=== PATIENT | female | born 1985 | race Caucasian/White ===

== ENCOUNTER 2017-01-31 12:38 | Emergency (ER) | payer SELFPAY ==
[~2017-01-31] VITALS: Ht 162.6 cm; Wt 56.0 kg
[~2017-01-31 12:38] MED LIST: AVIANE1 EACH PO; FIBER THERAPY0.52 GM PO; FLEXERIL10 MG PO; LO-OVRAL-281 EACH PO; NAPROSYN500 MG PO; NORCO 5/3251 TABLET PO; PERCOCET 5/31 TABLET PO; TYLENOL EXTRA500 MG PO; TYLENOL REGULA325 MG PO; VALACYCLOVIR1000 MG PO; ZOFRAN ODT8 MG PO
[2017-01-31 15:36] LABS: ADD MIUA? NO; BILIRUBIN NEGATIVE; BLOOD NEGATIVE; COLOR STRAW ((YELLOW)); GLUCOSE (STRIP) NEGATIVE; KETONES NEGATIVE; LEUKOCYTES NEGATIVE; NITRITE NEGATIVE; PROTEIN (STRIP) NEGATIVE; SPECIFIC GRAVITY 1.005 (1.000-1.030); UCUL ADDED? NO; UROBILINOGEN 0.2 MG/DL (0.2-1.0)
[2017-01-31 15:43] LABS: HEMATOCRIT 43.1 % (36.0-46.0); MCH 30.7 PG (29.0-34.0); MCHC 32.7 G/DL (30.0-36.0); MCV 93.7 FL (83-99); MEAN PLAT.VOLUME 10.7 uM^3 (9.5-12.4); PLATELET COUNT 263 K/uL (156-360); RBC DIS.WIDTH-CV 12.4 % (11.8-14.6); RBC DIS.WIDTH-SD 42.6 % (39-53); WHITE BLOOD COUNT 9.9 K/uL (4.1-10.2)
[2017-01-31 15:50] LABS: CHLORIDE 105 mEq/L (99-109); POTASSIUM 4.2 mEq/L (3.7-5.4); SODIUM 139 mEq/L (136-147)
[2017-01-31 15:53] LABS: GLUCOSE 82 mg/dL (70-99)
[2017-01-31 15:54] LABS: ANION GAP 12 MEQ/L (2-14)
[2017-01-31 15:55] LABS: TOTAL BILIRUBIN 0.3 mg/dL (0.0-1.0)
[2017-01-31 15:56] LABS: ALKALINE PHOSPHATASE 56 IU/L (3-129); GFR ESTIMATE (CALCULATED) > 59 mL/min/
[2017-01-31 15:57] LABS: UREA NITROGEN (BUN) 19 mg/dL (9-23)
[2017-01-31] MEDS ORDERED: ULTRAM50 MG PO (17:39)
[2017-01-31 17:49] VITALS: BP 110/65
== END 2017-01-31 17:50 | disposition home or self-care (01) ==
LOC: EME 12:38
PROVIDERS: Physician Assistant
DX: R10.9 Unspecified abdominal pain (principal); J45.909 Unspecified asthma, uncomplicated; Z88.6 Allergy status to analgesic agent; Z87.891 Personal history of nicotine dependence; Z90.710 Acquired absence of both cervix and uterus
CPT/HCPCS: 74176; 80053; 81003; 85027; 99281; 99284

== ENCOUNTER 2017-10-06 15:43 | Emergency (ER) | payer SELFPAY ==
[~2017-10-06] VITALS: Ht 162.6 cm; Wt 56.2 kg
[~2017-10-06 15:43] MED LIST changes: +ULTRAM50 MG PO
[2017-10-06 18:57] LABS: HEMATOCRIT 39.6 % (36.0-46.0); MCH 31.5 PG (29.0-34.0); MCHC 33.3 G/DL (30.0-36.0); MCV 94.5 FL (83-99); PLATELET COUNT 238 K/uL (156-360); RED BLOOD COUNT 4.19 M/uL (3.80-5.20); WHITE BLOOD COUNT 6.5 K/uL (4.1-10.2)
[2017-10-06 19:17] LABS: CHLORIDE 108 mEq/L (99-109); POTASSIUM 3.8 mEq/L (3.7-5.4); SODIUM 143 mEq/L (136-147)
[2017-10-06 19:18] LABS: GLUCOSE 94 mg/dL (70-99)
[2017-10-06 19:20] LABS: ANION GAP 8 MEQ/L (2-14)
[2017-10-06 19:22] LABS: GFR ESTIMATE (CALCULATED) > 59 mL/min/
[2017-10-06 19:23] LABS: UREA NITROGEN (BUN) 15 mg/dL (9-23)
[2017-10-06] MEDS ORDERED: MOTRIN600 MG PO (20:55)
[2017-10-06 21:22] VITALS: BP 111/74
== END 2017-10-06 21:22 | disposition home or self-care (01) ==
LOC: EME 15:43
PROVIDERS: Physician Assistant
DX: R51 Headache (principal); J45.909 Unspecified asthma, uncomplicated; M54.9 Dorsalgia, unspecified; G89.29 Other chronic pain; K58.9 Irritable bowel syndrome, unspecified; F17.210 Nicotine dependence, cigarettes, uncomplicated; Z88.6 Allergy status to analgesic agent
CPT/HCPCS: 70450; 80048; 85027; 99281; 99284; J1200; J2765; J7030